=== PATIENT | male | born 1945 | race Caucasian/White ===

== ENCOUNTER 2023-09-22 20:17 | Emergency (ER) | payer MEDICARE, OTHER, SELFPAY ==
[2023-09-22 20:20] VITALS: BP 106/67
[2023-09-22 20:42] LABS: % Basophils 0.4 % (0-2); % Eosinophils 1.6 % (0-6); % Immature Granulocytes 0.2 % (0-0.5); % Lymphocytes 18.3 % (20.5-51.1); % Monocytes 8.7 % (1.7-9.3); % Neutrophils 70.8 % (42.2-75.2); Absolute Eosinophils 0.1 10^3/uL (0-0.7); Absolute Lymphocytes 1.5 10^3/uL (1.2-3.4); Absolute Monocytes 0.7 10^3/uL (0.1-0.6); Absolute Neutrophils 5.9 10^3/uL (1.4-6.5); Hematocrit 42.8 % (39.0-52.0); Hemoglobin 15.3 g/dL (13.0-18.0); Mean Corp Hgb Conc. 35.7 g/dL (33.0-37.0); Mean Corpuscular Hgb 30.6 pg (27.0-31.0); Mean Corpuscular Volume 85.6 fL (80.0-94.0); Mean Platelet Volume 10.6 fL (7.4-10.4); Nucleated Red Blood Cells % 0 % (-); Platelet Count 220 10^3/uL (130-400); Red Cell Dist. Width 12.6 % (11.5-14.5); White Blood Cell Count 8.4 10^3/uL (4.8-10.8)
[2023-09-22 21:14] LABS: ALT (SGPT) 25 U/L (0-50); AST (SGOT) 31 U/L (17-59); Albumin 4.2 g/dl (3.5-5.0); Alkaline Phosphatase 79 U/L (38-126); Blood Urea Nitrogen 23 mg/dl (9-20); Calcium 9.7 mg/dl (8.4-10.2); Carbon Dioxide 23 mmol/L (22-30); Chloride 104 mmol/L (98-107); Glucose 148 mg/dl (70-99); Potassium 4.1 mmol/L (3.5-5.1); Sodium 139 mmol/L (135-145); Total Bilirubin 0.3 mg/dl (0.2-1.3); Total Protein 6.2 g/dl (6.3-8.2); eGFR > 60.00
--- NOTE | 2023-09-22 21:53 | ED.GENMED ---
History of Present Illness
General
Chief Complaint: Fainting Sensation
Source: patient and spouse
Exam Limitations: none
Time Seen by Provider: 09/22/23 21:30
Nursing documentation reviewed up to this point in time: agreed with
History of Present Illness
History of Present Illness:
The patient is a pleasant 77-year-old man who arrives to the emergency department with his due to a near fainting episode just prior to arrival. Patient reports that he had just gotten up out of a chair and was walking and felt lightheaded.
His reports that she was worried he was going to pass out so she helped him down to the ground. His reports that as she was lowering him down to the ground, he hit his head, however, she reports that there was no significant impact.
Patient denies a headache and vision changes. He is not on any blood thinners including Plavix and aspirin. He denies neck pain. He denies chest pain and shortness of breath. His reports that she checked his blood pressure multiple times
and it was low. Patient reports that he has recently felt well without any fever or cough. Patient reports that at times when he takes his tamsulosin, it makes him feel lightheaded. He reports he had just taken the tamsulosin today.
Past History
Past History
ED Past Medical History: Cancer, HTN and Hypercholesterolemia
ED Past Surgical History: Other
Social History
Tobacco: Non-smoker
Alcohol: Other
Drug: None
Personal:
Living: with family
Employment: Other
Family History
Family History: Other
Review of Systems
Review of Systems
Allergies reviewed?: Yes
All Other Systems: ROS reviewed and negative except as documented in HPI and ROS
Constitutional: Reports no symptoms
EENT: Reports no symptoms
Respiratory: Reports no symptoms
Cardiac: Reports syncope (Presyncopal. No loss of consciousness); Denies chest pain or palpitations
ABD/GI: Reports no symptoms
: Reports no symptoms
Musculoskeletal: Reports no symptoms
Skin: Reports no symptoms
Neurological: Reports no symptoms
Endocrine: Reports no symptoms
Hematologic/Lymphatic: Reports no symptoms
Psychiatric: Reports no symptoms
Phy Exam
Physical Exam
Physical Exam:
Physical Exam
General: no apparent distress, not acutely ill. Well appearing. Atraumatic appearing face and head.
Neck: supple. no meningeal signs. normal psoterior pharynx. Nontender C-spine
Heart: s1/s2 regular rate and rhythm, no murmur. equal radial pulses. No vertebral spine tenderness
Lungs: no acute respiratory distress. clear bilaterally
Abdomen: normal bowel sounds. not tender. no CVAT
Neuro: alert and orientedx3. no focal neurological deficits. 5 out of 5 strength in all extremities without drift. Normal [id number]. Visual alfaro intact.
Skin: no rash
Psychiatric: well kept. interactive and cooperative
Extremities: no edema. no calf tenderness. negative homans. good distal pulses. Nontender
Course
Orders/Labs/Results
Orders:
Orders
09/22/23 20:23
Electrocardiogram (*1) Urgent
Reason for Study: Syncope
EKG- Treatment ONCE
09/22/23 20:36
Complete Blood Count/With Diff Urgent
Comprehensive Metabolic Panel Urgent
09/22/23 22:10
Orthostatic VS- Treatment ONCE
09/22/23 22:20
0.9% Sodium Chloride 1000 ml [Nss] 1,500 ml IV BOLUS
09/22/23 22:33
Troponin I Urgent
Abnormal Lab Results
09/22/23
20:36
MPV 10.6 H fL
(7.4-10.4)
Absolute Monos (auto) 0.7 H 10^3/uL
(0.1-0.6)
Lymphocytes % 18.3 L %
(20.5-51.1)
BUN 23 H mg/dl
(9-20)
Glucose 148 H mg/dl
(70-99)
Total Protein 6.2 L g/dl
(6.3-8.2)
09/22/23 20:36
09/22/23 20:36
Vital Signs
Initial and Last Documented VS:
Initial Vital Signs
Temp Pulse Resp BP Pulse Ox
98.6 F 83 18 106/67 97
09/22/23 20:20 09/22/23 20:20 09/22/23 20:20 09/22/23 20:20 09/22/23 20:20
Last Documented Vital Signs
Temp Pulse Resp BP Pulse Ox
98.6 F 67 18 106/67 94
09/22/23 20:20 09/22/23 22:43 09/22/23 22:30 09/22/23 20:20 09/22/23 22:43
MDM/Problems Addressed
Differential Diagnosis Includes:
Orthostatic hypotension, acute dehydration, acute hyponatremia, cardiac arrhythmia
MDM/Problems Addressed:
Patient presents with acute episode of lightheadedness
*Pulse Oximetry
Patient hypoxic: no
*EKG
Interpreted by ED Provider?: Yes
Interpretation: abnormal
Comparison EKG: no comparison EKG present
Rate: normal
Rhythm: sinus and PAC's
[place]: normal axis
Interval: first degree heart block
QRS Pattern: normal QRS
Ischemia: no ischemia
*[facility] Interpretation
Rate: normal
Interpretation: normal
Rhythm: sinus
*Critical Care Note
Total Time (30-74mins, 75-104mins- exclusive of procedures): Not Applicable
Data Reviewed
Source: patient and spouse
Patient Management
Social determinants of health affecting care: Living situation and Strong social support
Escalation/DeEscalation of care consider admission/obs:
Patient appears extremely well and comfortable. He reports that the impact to his head was very minor. He is not on any blood thinners. We did discuss doing a CT, however, I do not feel that patient has any moderate to significant risk of an
intracranial injury given that he is not on blood thinners and the mechanism of the injury. Additionally, patient has a normal neurological exam and has had no nausea, vomiting or light sensitivity. 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
cardiac arrhythmia. When patient sat up, he did feel lightheaded. I feel patient's dizziness is due to an orthostatic cause. Patient given IV fluids and feels better.
ED Attending Note
-
Portions of this chart may have been created with voice recognition software.� Occasional wrong word or��sound alike� substitutions may have occurred due to the inherent limitations of voice recognition software.
Discharge Plan
Departure
Patient Disposition: Home (Routine Discharge)
Date of Disposition: 09/22/23
Time of Disposition: 23:14
Patient with high blood pressure during this ER visit?: No
Condition: Good
Covid-19: Not Applicable
Discharge Problem:
Orthostatic dizziness
Instructions: Orthostatic hypotension, Near Fainting (DC)
Prescriptions:
No Action
venlafaxine [Effexor XR] 37.5 MG capsule,extended release 24hr
37.5 mg PO DAILY
atenolol 25 MG tablet
25 mg PO DAILY
simvastatin 40 MG tablet
40 mg PO DAILY
losartan 25 MG tablet
25 mg PO DAILY
Referrals:
Ashley Benton PA [Family Provider] -
Activity Restrictions/Additional Instructions:
Make sure you drink lots of fluids. If you feel lightheaded or faint, sit down immediately and elevate your legs for at least 15 minutes.
Interventions
Interventions:
*Risk Screen - Suicide Last Done: 09/22/23 20:20
*General Assessment Last Done: 09/22/23 20:20
*Neglect/Abuse Screening Last Done: 09/22/23 20:20
ED- Fall Risk Assessment Last Done: 09/22/23 22:15
*ED COVID-19 Vaccine History Last Done: 09/22/23 20:20
ED- Cardiac Assessment Last Done: 09/22/23 22:15
ED- Neurological Assessment Last Done: 09/22/23 22:15
Discharge Date and Time
Print Language: MAURITANIAN
[2023-09-22 22:21] VITALS: BP 116/65; BP 87/56; BP 90/55; PULSE 67; PULSE 84; PULSE 93
[2023-09-22 22:34] VITALS: BMI 27.7
[2023-09-22] MEDS: NSS 1500 IV (22:34)
[2023-09-22 23:00] VITALS: BP 101/60
[2023-09-22 23:08] LABS: Troponin I < 0.012 ng/ml
[2023-09-22 23:21] VITALS: BP 107/56
== END 2023-09-22 23:29 | disposition home or self-care (01) ==
LOC: EMR 20:17
PROVIDERS: Emergency Medicine; EMERGENCY PHYSICIAN Emergency Medicine; FAMILY PHYSICIAN Physician Assistant Medical
DX: R42 Dizziness and giddiness (principal); S09.90XA Unspecified injury of head, initial encounter; X58.XXXA Exposure to other specified factors, initial encounter; I44.0 Atrioventricular block, first degree; I10 Essential (primary) hypertension; E78.00 Pure hypercholesterolemia, unspecified
CPT/HCPCS: 99284; 96360; 80053; 84484; 85025; 93005

== ENCOUNTER → 2024-09-20 09:39 | Outpatient (REF) | payer MEDICARE, OTHER, SELFPAY | LOC: MRI 3T 09:39 | PROVIDERS: ATTENDING PHYSICIAN Specialist; FAMILY PHYSICIAN Physician Assistant Medical | DX: R97.20 Elevated prostate specific antigen [PSA] (principal) | CPT/HCPCS: 72197; A9575 ==